=== PATIENT | male | born 1965 | race Caucasian/White ===

== ENCOUNTER 2020-09-29 05:05 | Emergency (ER) | payer BC, SELFPAY ==
[2020-09-29 05:14] VITALS: BP 174/100; PULSE 63; RESP 20; TEMP 35.8; O2SAT 100
[2020-09-29] MEDS: predniSONE 20 MG TABLET 60 MG PO (05:47)
[2020-09-29] MEDS: LORATADINE 10 MG TABLET PO (05:47)
[2020-09-29 05:48] VITALS: BP 149/98; PULSE 52; RESP 20; O2SAT 97
[2020-09-29] MEDS: AMOXICILLIN/CLAVULANATE K 875-125 MG TAB 1 TABLET PO (05:48)
--- NOTE | 2020-09-29 05:48 | ED.GENADULT ---
HPI - General Adult General Chief complaint: Upper Respiratory Infection Stated complaint: Sinus congestion, throat pain Time Seen by Provider: 09/29/20 05:09 Source: RN notes reviewed History of Present Illness HPI narrative: Patient presents to emergency department from home for swollen uvula. Patient states he woke up this morning to the bathroom and noticed a feeling something hanging down in his throat causing her to feel he was choking he states he had had some sinus drainage last night and he did look in the back of his throat and still that his uvula swollen he states he has been having problems with his allergies are he is flying he denies any fevers or chills ear pain sore throat shortness of breath abdominal pain or chest pain. Patient does state that he has a history of chronic cough but denies any production of his cough Related Data Home Medications Medication Instructions Recorded Confirmed sildenafil 100 mg tablet 100 mg PO DAILY PRN 04/02/19 Allergies Allergy/AdvReac Type Severity Reaction Status Date / Time No Known Allergies Allergy Mild Verified 05/21/19 09:18 Review of Systems Review of Systems: Narrative: Gen.: Denies fevers or chills Eyes: Denies eye pain or visual change ENT: See HPI Respiratory: Denies shortness of breath or cough CV: Denies chest pain or palpitations GI: Denies abdominal pain nausea, emesis or diarrhea Musculoskeletal: Denies back pain or muscle pain Neuro: Denies numbness, tingling, weakness or focal weakness Skin: Denies rash Except as documented, all other systems reviewed and negative [facility] Past Medical History Medical History (Updated 09/29/20 @ 05:51 by Delmar Guerin DO) Anxiety Erectile dysfunction GERD (gastroesophageal reflux disease) Hiatal hernia Hypertension Varicella Family History Family History Father Hypertension Cerebrovascular accident Grandparent Hypertension Cerebrovascular accident Family history of malignant neoplasm of breast Social History Social History Smoking status: Never smoker Second hand tobacco smoke exposure: No Alcohol intake: never Exam Narrative: Exam Narrative: APPEARANCE: No acute distress, nontoxic, resting in bed EYES: EOMI HEENT: Normocephalic, atraumatic, TMs clear bilaterally nares patent oral mucosa moist erythema of the uvula with the uvula swollen the bilateral tonsils are normal appearance with no exudate 2+ the airway is patent no trismus tolerating own secretions no stridor RESPIRATORY: No respiratory distress Clear to auscultation bilaterally with no rhonchi wheezing or rales. CARDIOVASCULAR: Regular rate and rhythm without murmurs rubs or gallops. ABDOMINAL: Soft, nontender, nondistended, no rebound or guarding MUSCULOSKELETAl: Moves all extremities. No clubbing, cyanosis or edema. NEURO: Awake and alert. Following commands, speech normal, no focal deficits SKIN:: Warm, dry. No rashes lesions or abrasions PSYCHIATRIC: Normal affect/mood, Course Course Emergency Course: Discussed with patient results of workup and diagnosis. Discussed need for follow-up with primary care, proper use of medication, and reasons to return to the emergency department. Patient understands and agrees to current treatment plan Vital Signs Vital signs: Vital Signs Temperature 96.4 F L 09/29/20 05:14 Pulse Rate 63 09/29/20 05:14 Respiratory Rate 20 09/29/20 05:14 Blood Pressure 174/100 H 09/29/20 05:14 Pulse Oximetry 100 09/29/20 05:14 Temperature 96.4 F L 09/29/20 05:14 Pulse Rate 52 L 09/29/20 05:48 Respiratory Rate 20 09/29/20 05:48 Blood Pressure 149/98 H 09/29/20 05:48 Pulse Oximetry 97 09/29/20 05:48 Medical Decision Making Vital Signs Vital Signs: Vital Signs Temperature 96.4 F L 09/29/20 05:14 Pulse Rate 63 09/29/20 05:14 Respiratory Rate 20 05
[2020-09-29 07:08] VITALS: BP 145/79; PULSE 69; RESP 20; O2SAT 98
== END 2020-09-29 07:10 | disposition home or self-care (01) ==
PROVIDERS: Emergency Provider Emergency Medicine; PCP Family Medicine
DX: K12.2 Cellulitis and abscess of mouth (principal); K21.9 Gastro-esophageal reflux disease without esophagitis; F41.9 Anxiety disorder, unspecified
CPT/HCPCS: 87081; 87880; 99283; A9270; J7512

== ENCOUNTER → 2020-11-17 08:05 | Outpatient (CLI) | payer BC, SELFPAY ==
--- NOTE | ~2020-11-17 | XR_ITS ---
EXAMINATION: XR chest 2V 11/17/2020 08:21 INDICATION: Cough PROCEDURE: 2 view chest COMPARISON: No prior studies for comparison. FINDINGS: The lungs are clear. The cardiomediastinal silhouette is within normal limits. There are no pleural effusions. There is no pneumothorax suspected. IMPRESSION: 1: NO ACUTE CARDIOPULMONARY DISEASE. Reviewed, dictated and finalized at location B.
== END ==
PROVIDERS: PCP Family Medicine; Visit Provider Physician Assistant
DX: R05 Cough (principal)
CPT/HCPCS: 71046